=== PATIENT | male | born 1995 | race Caucasian/White ===

== ENCOUNTER 2021-05-25 14:43 | Inpatient (IN) | payer BC, SELFPAY ==
[~2021-05-25] VITALS: Ht 188 cm; Wt 73.3 kg
[2021-05-25 14:48] VITALS: BP_SYST 141
[2021-05-25] MEDS ORDERED: NACL 0.9% 1,000 ML IV ONE (15:45)
[2021-05-25] MEDS ORDERED: ONDANSETRON HCL 4 MG/2 ML VIAL IVP ONE (15:45)
[2021-05-25] MEDS ORDERED: MORPHINE 4 MG INJ. 4 MG/ML VIAL IVP ONE (15:45)
[2021-05-25 15:51] LABS: BLOOD, URINE NEGATIVE (NEGATIVE); CLARITY/URINE CLEAR (CLEAR); GLUCOSE,URINE NEGATIVE (NEGATIVE); KETONES,URINE 2+ (NEGATIVE); LEUKOCYTE ESTERASE ,URINE NEGATIVE (NEGATIVE); NITRITE, URINE NEGATIVE (NEGATIVE); PH,URINE 5.5 (5.0-8.0); PROTEIN URINE TRACE (NEGATIVE); UROBILINOGEN,URINE 0.2 (0.2-1.0)
[2021-05-25 15:56] LABS: BILIRUBIN,URINE NEGATIVE (NEGATIVE); COLOR,URINE AMBER (YELLOW)
[2021-05-25 15:57] LABS: BACTERIA,URINE FEW /HPF (None Seen); MUCUS,URINE 2+ /LPF (None Seen); RBC,URINE 0-3 /HPF (0-3); WBC,URINE 0-3 /HPF (0-3)
[2021-05-25 16:27] LABS: BASOPHILS % (AUTO) 0.3 % (0.0-2.0); EOSINOPHILS % (AUTO) 0.3 % (0.0-4.0); HEMATOCRIT 43.4 % (36-54); LYMPHOCYTES # (AUTO) 1.7 K/uL (1.0-5.5); LYMPHOCYTES % (AUTO) 16.7 % (20.5-51.5); MEAN CORPUSCULAR HEMOGLOBIN 30 pg (27-31); MEAN CORPUSCULAR HGB CONC 35 % (32-36); MEAN CORPUSCULAR VOLUME 87 fL (79.0-98.0); MONOCYTES # (AUTO) 1.1 K/uL (0.0-1.0); MONOCYTES % (AUTO) 11.2 % (1.7-9.3); NEUTROPHILS # (AUTO) 7.1 K/uL (1.8-7.7); NEUTROPHILS % (AUTO) 71.5 % (40.0-70.0); PLATELET COUNT (AUTO) 233 K/uL (130-430); RED BLOOD CELL COUNT(AUTO) 4.99 MIL/uL (4.2-6.2); RED CELL DISTRIBUTION WIDTH 12.5 % (9.0-15.0); WHITE BLOOD COUNT (AUTO) 9.9 K/uL (4.8-10.8)
[2021-05-25 16:38] LABS: CALCIUM 9.5 mg/dL (8.4-11.0); CREATININE 0.89 mg/dL (0.55-1.30); POTASSIUM 3.7 mmol/L (3.5-5.1)
[2021-05-25 16:43] LABS: ALBUMIN 4.2 g/dL (3.4-4.8); TOTAL BILIRUBIN 0.6 mg/dL (0.0-1.0)
[2021-05-25] MEDS ORDERED: KETOROLAC TROMETHAMINE 30 MG VIAL IVP ONE (16:45)
[2021-05-25] MEDS ORDERED: IOHEXOL 350 mgI/mL, 150 ML INFUS..BTL IV ONE (18:14)
[2021-05-25] MEDS ORDERED: ENOXAPARIN SODIUM 60 MG/0.6 ML SYRINGE SUBCUT ONE (19:00)
[2021-05-25 22:00] VITALS: BP_SYST 131
[2021-05-25 22:49] VITALS: BP_SYST 131
[2021-05-26] MEDS ORDERED: NALOXONE HCL 0.4 MG/ML AMP (NARCAN) IVP PRN
[2021-05-26] MEDS ORDERED: traZODone HCL 50 MG TABLET (DESYREL) PO PRN
[2021-05-26] MEDS: MORPHINE 2 MG/ML INJ. SYRINGE IVP PRN ×5 (00:13→21:37)
[2021-05-26 07:00] VITALS: BP_SYST 137
[2021-05-26 08:00] VITALS: BP_SYST 111
[2021-05-26] MEDS ORDERED: ONDANSETRON HCL 4 MG/2 ML VIAL IVP PRN ×2 (08:00)
[2021-05-26] MEDS ORDERED: LORazepam 2 MG/ML VIAL IVP PRN (08:00)
[2021-05-26] MEDS ORDERED: *LOVENOX 1MG/KG Q12H/PHARMACY XX ONE (08:00)
[2021-05-26] MEDS ORDERED: ACETAMINOPHEN 325 MG TABLET PO PRN ×2 (08:00→08:15)
[2021-05-26] MEDS ORDERED: ENOXAPARIN SODIUM 80 MG/0.8 ML SYRINGE SUBCUT SCH (09:00)
[2021-05-26 12:00] VITALS: BP_SYST 115
[2021-05-26] MEDS: NORMAL SALINE 5 ML DISP.SYRIN IVF SCH ×4 (14:00→21:30)
[2021-05-26 16:00] VITALS: BP_SYST 124
[2021-05-26 16:38] LABS: BASOPHILS # (AUTO) 0.1 K/uL (0.0-0.2); BASOPHILS % (AUTO) 0.8 % (0.0-2.0); EOSINOPHILS # (AUTO) 0.1 K/uL (0.0-0.4); EOSINOPHILS % (AUTO) 0.9 % (0.0-4.0); HEMATOCRIT 37.4 % (36-54); HEMOGLOBIN 13.2 g/dL (14.0-18.0); LYMPHOCYTES # (AUTO) 1.4 K/uL (1.0-5.5); LYMPHOCYTES % (AUTO) 17.2 % (20.5-51.5); MEAN CORPUSCULAR HEMOGLOBIN 31 pg (27-31); MEAN CORPUSCULAR HGB CONC 35 % (32-36); MEAN CORPUSCULAR VOLUME 87 fL (79.0-98.0); MONOCYTES # (AUTO) 1.1 K/uL (0.0-1.0); MONOCYTES % (AUTO) 13.7 % (1.7-9.3); NEUTROPHILS # (AUTO) 5.6 K/uL (1.8-7.7); NEUTROPHILS % (AUTO) 67.4 % (40.0-70.0); PLATELET COUNT (AUTO) 202 K/uL (130-430); RED BLOOD CELL COUNT(AUTO) 4.32 MIL/uL (4.2-6.2); RED CELL DISTRIBUTION WIDTH 12.3 % (9.0-15.0); WHITE BLOOD COUNT (AUTO) 8.2 K/uL (4.8-10.8)
[2021-05-26] MEDS: AZITHROMYCIN 500 MG in NS 250 ML IV SCH (16:48)
[2021-05-26 16:56] LABS: BARBITURATE, URINE NEGATIVE (NEG <=200); BENZODIAZEPINE, URINE NEGATIVE (NEG <=150); CANNABINOID, URINE NEGATIVE (NEG <=50); COCAINE, URINE NEGATIVE (NEG <=150); METHAMPHETAMINES SCREEN,URINE NEGATIVE (NEG <=500); OPIATE, URINE POSITIVE (NEG <=100); PHENCYCLIDINE SCREEN,URINE NEGATIVE (NEG <=25); UR TRICYCLIC ANTIDEPRESSANTS NEGATIVE (NEG <=300); URINE AMPHETAMINE NEGATIVE (NEG <=500); URINE METHADONE NEGATIVE (NEG <=200); URINE OXYCODONE SCREEN NEGATIVE (NEG <=100); URINE PROPOXYPHENE SCREEN NEGATIVE (NEG <=300)
[2021-05-26] MEDS: PIPERACILLIN/TAZO 3.375/DEX-IS 50 ML IV SCH ×2 (18:58→23:10)
[2021-05-26 19:00] VITALS: BP_SYST 112
[2021-05-26 20:00] VITALS: BP_SYST 112
[2021-05-26] MEDS: APIXABAN 2.5 MG TABLET PO SCH (21:29)
[2021-05-26] MEDS ORDERED: D5/0.45 NS 1,000 ML IV SCH (22:45)
[2021-05-26] MEDS: BACLOFEN 10 MG TABLET PO PRN (23:09)
[2021-05-27] VITALS: BP_SYST 110
[2021-05-27] MEDS: MORPHINE 2 MG/ML INJ. SYRINGE IVP PRN (04:57)
[2021-05-27] MEDS: NORMAL SALINE 5 ML DISP.SYRIN IVF SCH ×6 (05:00→20:47)
[2021-05-27] MEDS: PIPERACILLIN/TAZO 3.375/DEX-IS 50 ML IV SCH ×3 (05:00→17:46)
[2021-05-27 06:51] LABS: BASOPHILS % (AUTO) 0.3 % (0.0-2.0); EOSINOPHILS # (AUTO) 0.1 K/uL (0.0-0.4); EOSINOPHILS % (AUTO) 0.9 % (0.0-4.0); HEMATOCRIT 38.9 % (36-54); HEMOGLOBIN 13.3 g/dL (14.0-18.0); LYMPHOCYTES # (AUTO) 1.3 K/uL (1.0-5.5); MEAN CORPUSCULAR HEMOGLOBIN 30 pg (27-31); MEAN CORPUSCULAR HGB CONC 34 % (32-36); MEAN CORPUSCULAR VOLUME 88 fL (79.0-98.0); MONOCYTES # (AUTO) 1.2 K/uL (0.0-1.0); MONOCYTES % (AUTO) 14.6 % (1.7-9.3); NEUTROPHILS # (AUTO) 5.6 K/uL (1.8-7.7); NEUTROPHILS % (AUTO) 68.2 % (40.0-70.0); PLATELET COUNT (AUTO) 224 K/uL (130-430); RED BLOOD CELL COUNT(AUTO) 4.42 MIL/uL (4.2-6.2); RED CELL DISTRIBUTION WIDTH 12.3 % (9.0-15.0); WHITE BLOOD COUNT (AUTO) 8.2 K/uL (4.8-10.8)
[2021-05-27 07:15] LABS: CALCIUM 8.9 mg/dL (8.4-11.0); CREATININE 0.95 mg/dL (0.55-1.30)
[2021-05-27 08:00] VITALS: BP_SYST 125
[2021-05-27] MEDS: APIXABAN 2.5 MG TABLET PO SCH ×2 (09:10→20:54)
[2021-05-27] MEDS: BACLOFEN 10 MG TABLET PO PRN ×2 (11:58→20:47)
[2021-05-27 12:06] VITALS: BP_SYST 129
[2021-05-27] MEDS ORDERED: DOCUSATE SODIUM 100 MG CAPSULE PO ONE (12:15)
[2021-05-27] MEDS ORDERED: HYDROcodone/ACETAMIN 10-325 MG TAB PO PRN (12:30)
[2021-05-27] MEDS ORDERED: ONDANSETRON HCL 4 MG/2 ML VIAL IVP PRN (12:30)
[2021-05-27] MEDS ORDERED: NALOXONE HCL 0.4 MG/ML AMP (NARCAN) IVP PRN ×2 (12:30)
[2021-05-27] MEDS: IPRATROPIUM BROM 0.5 MG/2.5 ML VIAL.NEB (ATROVENT) INH SCH ×3 (15:39→21:44)
[2021-05-27] MEDS: ALBUTEROL SULFATE 0.083% 2.5 MG/3 ML VIAL.NEB INH SCH ×3 (15:39→21:44)
[2021-05-27] MEDS: AZITHROMYCIN 500 MG in NS 250 ML IV SCH (15:55)
[2021-05-27 16:00] VITALS: BP_SYST 128
[2021-05-27 19:00] VITALS: BP_SYST 128
[2021-05-27 20:00] VITALS: BP_SYST 128
[2021-05-27] MEDS ORDERED: MILK OF MAGNESIA 30 ML UDC PO PRN (20:15)
[2021-05-27] MEDS ORDERED: SIMETHICONE 80 MG TAB.CHEW PO PRN (20:15)
[2021-05-27] MEDS: DOCUSATE SODIUM 100 MG CAPSULE PO SCH (20:46)
[2021-05-27] MEDS: POLYETHYLENE GLYCOL 3350, 17 GM/ POWD.PACK PO SCH (20:46)
[2021-05-28] VITALS: BP_SYST 126
[2021-05-28] MEDS: PIPERACILLIN/TAZO 3.375/DEX-IS 50 ML IV SCH ×5 (00:11→23:43)
[2021-05-28] MEDS: IPRATROPIUM BROM 0.5 MG/2.5 ML VIAL.NEB (ATROVENT) INH SCH ×6 (03:00→23:39)
[2021-05-28] MEDS: ALBUTEROL SULFATE 0.083% 2.5 MG/3 ML VIAL.NEB INH SCH ×6 (03:00→23:39)
[2021-05-28] MEDS: NORMAL SALINE 5 ML DISP.SYRIN IVF SCH ×6 (05:20→23:44)
[2021-05-28 07:07] LABS: BASOPHILS % (AUTO) 0.3 % (0.0-2.0); EOSINOPHILS # (AUTO) 0.1 K/uL (0.0-0.4); EOSINOPHILS % (AUTO) 1.5 % (0.0-4.0); HEMATOCRIT 34.6 % (36-54); LYMPHOCYTES # (AUTO) 1.2 K/uL (1.0-5.5); LYMPHOCYTES % (AUTO) 15.1 % (20.5-51.5); MEAN CORPUSCULAR HEMOGLOBIN 30 pg (27-31); MEAN CORPUSCULAR HGB CONC 35 % (32-36); MEAN CORPUSCULAR VOLUME 87 fL (79.0-98.0); MONOCYTES # (AUTO) 1.3 K/uL (0.0-1.0); MONOCYTES % (AUTO) 16.5 % (1.7-9.3); NEUTROPHILS # (AUTO) 5.3 K/uL (1.8-7.7); NEUTROPHILS % (AUTO) 66.6 % (40.0-70.0); PLATELET COUNT (AUTO) 227 K/uL (130-430); RED BLOOD CELL COUNT(AUTO) 3.99 MIL/uL (4.2-6.2); RED CELL DISTRIBUTION WIDTH 12.2 % (9.0-15.0)
[2021-05-28 07:43] LABS: ALBUMIN 2.8 g/dL (3.4-4.8); C-REACTIVE PROTEIN QUANT 10.8 mg/dL (0-0.5); CALCIUM 8.2 mg/dL (8.4-11.0); CREATININE 0.86 mg/dL (0.55-1.30); POTASSIUM 3.9 mmol/L (3.5-5.1); TOTAL BILIRUBIN 0.8 mg/dL (0.0-1.0)
[2021-05-28 08:30] VITALS: BP_SYST 119
[2021-05-28] MEDS: DOCUSATE SODIUM 100 MG CAPSULE PO SCH ×2 (08:49→21:00)
[2021-05-28] MEDS: POLYETHYLENE GLYCOL 3350, 17 GM/ POWD.PACK PO SCH (08:49)
[2021-05-28] MEDS: APIXABAN 2.5 MG TABLET PO SCH ×2 (09:00→21:52)
[2021-05-28 09:24] LABS: ERYTHROCYTE SEDIMENTATION RATE 66 MM/HR (0-15)
[2021-05-28 11:34] VITALS: BP_SYST 132
[2021-05-28] MEDS: AZITHROMYCIN 500 MG in NS 250 ML IV SCH (16:04)
[2021-05-28 16:21] VITALS: BP_SYST 120
[2021-05-28] MEDS: BACLOFEN 10 MG TABLET PO PRN ×2 (17:28→23:15)
[2021-05-28] MEDS: HYDROcodone/ACETAMIN 5-325 MG TAB (NORCO/ VICODIN) PO PRN (17:32)
[2021-05-28 20:00] VITALS: BP_SYST 123
[2021-05-29] VITALS: BP_SYST 129
[2021-05-29] MEDS: ALBUTEROL SULFATE 0.083% 2.5 MG/3 ML VIAL.NEB INH SCH ×6 (03:00→23:52)
[2021-05-29] MEDS: IPRATROPIUM BROM 0.5 MG/2.5 ML VIAL.NEB (ATROVENT) INH SCH ×6 (03:00→23:53)
[2021-05-29] MEDS: DOCUSATE SODIUM 100 MG CAPSULE PO SCH ×2 (04:12→21:00)
[2021-05-29] MEDS: PIPERACILLIN/TAZO 3.375/DEX-IS 50 ML IV SCH ×4 (06:01→23:10)
[2021-05-29] MEDS: NORMAL SALINE 5 ML DISP.SYRIN IVF SCH ×6 (06:01→21:35)
[2021-05-29 08:00] VITALS: BP_SYST 116
[2021-05-29] MEDS: POLYETHYLENE GLYCOL 3350, 17 GM/ POWD.PACK PO SCH (09:00)
[2021-05-29] MEDS: APIXABAN 2.5 MG TABLET PO SCH ×2 (09:03→21:34)
[2021-05-29 12:00] VITALS: BP_SYST 119
[2021-05-29] MEDS: AZITHROMYCIN 500 MG in NS 250 ML IV SCH (15:42)
[2021-05-29 16:00] VITALS: BP_SYST 122
[2021-05-29] MEDS: BACLOFEN 10 MG TABLET PO PRN (19:56)
[2021-05-29 20:00] VITALS: BP_SYST 119
[2021-05-29] MEDS: HYDROcodone/ACETAMIN 5-325 MG TAB (NORCO/ VICODIN) PO PRN (21:45)
[2021-05-30] VITALS: BP_SYST 127
[2021-05-30] MEDS: ALBUTEROL SULFATE 0.083% 2.5 MG/3 ML VIAL.NEB INH SCH ×4 (03:00→15:33)
[2021-05-30] MEDS: IPRATROPIUM BROM 0.5 MG/2.5 ML VIAL.NEB (ATROVENT) INH SCH ×4 (03:00→15:33)
[2021-05-30] MEDS: PIPERACILLIN/TAZO 3.375/DEX-IS 50 ML IV SCH ×2 (06:53→12:07)
[2021-05-30] MEDS: NORMAL SALINE 5 ML DISP.SYRIN IVF SCH ×4 (06:54→13:45)
[2021-05-30] MEDS: BACLOFEN 10 MG TABLET PO PRN (07:01)
[2021-05-30 07:47] LABS: BASOPHILS % (AUTO) 0.7 % (0.0-2.0); EOSINOPHILS # (AUTO) 0.3 K/uL (0.0-0.4); EOSINOPHILS % (AUTO) 5.2 % (0.0-4.0); HEMATOCRIT 35.8 % (36-54); HEMOGLOBIN 12.3 g/dL (14.0-18.0); LYMPHOCYTES # (AUTO) 1.8 K/uL (1.0-5.5); LYMPHOCYTES % (AUTO) 36.3 % (20.5-51.5); MEAN CORPUSCULAR HEMOGLOBIN 30 pg (27-31); MEAN CORPUSCULAR HGB CONC 34 % (32-36); MEAN CORPUSCULAR VOLUME 88 fL (79.0-98.0); MONOCYTES # (AUTO) 0.7 K/uL (0.0-1.0); MONOCYTES % (AUTO) 13.1 % (1.7-9.3); NEUTROPHILS # (AUTO) 2.3 K/uL (1.8-7.7); NEUTROPHILS % (AUTO) 44.7 % (40.0-70.0); PLATELET COUNT (AUTO) 277 K/uL (130-430); RED BLOOD CELL COUNT(AUTO) 4.08 MIL/uL (4.2-6.2); RED CELL DISTRIBUTION WIDTH 12.3 % (9.0-15.0)
[2021-05-30 08:12] VITALS: BP_SYST 145
[2021-05-30] MEDS: DOCUSATE SODIUM 100 MG CAPSULE PO SCH (09:00)
[2021-05-30] MEDS: POLYETHYLENE GLYCOL 3350, 17 GM/ POWD.PACK PO SCH (09:00)
[2021-05-30] MEDS: APIXABAN 2.5 MG TABLET PO SCH (09:32)
[2021-05-30] MEDS ORDERED: APIX5TAB PO (14:29)
[2021-05-30] MEDS ORDERED: AMOX-426 PO (14:30)
[2021-05-30 14:38] VITALS: BP_SYST 128
[2021-05-30 15:03] VITALS: BP_SYST 128
== END 2021-05-30 16:00 | disposition home or self-care (01) | DRG 175 ==
LOC: SED 14:43 → SMU 19:05 → STU 05-26 16:24
PROVIDERS: ADMIT Preventive Medicine Preventive Medicine/Occupational Environmental Medicine; ATTEND Internal Medicine Hospice and Palliative Medicine
DX: I26.99 Other pulmonary embolism without acute cor pulmonale (principal); J96.01 Acute respiratory failure with hypoxia; J18.9 Pneumonia, unspecified organism; E87.1 Hypo-osmolality and hyponatremia; D68.59 Other primary thrombophilia; Z20.822 Contact with and (suspected) exposure to COVID-19; K59.00 Constipation, unspecified
CPT/HCPCS: 36415; 71045; 71275; 76376; 80048; 80053; 80307; 81000; 83605; 83690; 85025; 85379; 85651-TC; 86140; 93970; 94640; 94760; 96372; 96374; 96375; 99285; G0378; J0456; J1650; J1885; J2060; J2270; J2405; J2543; J7050; J7613; Q9967